=== PATIENT | female | born 1990 | race Caucasian/White ===

== ENCOUNTER 2022-01-03 15:49 | Emergency (ER) | payer MEDICAID ==
[~2022-01-03] VITALS: Ht 170.2 cm; Wt 71.8 kg
[2022-01-03 16:20] VITALS: BP 126/69
[2022-01-03] MEDS ORDERED: IBUPROFEN 800 MG TAB PO ONE (16:45)
[2022-01-03] MEDS ORDERED: IBUPROFEN 800 MG TAB ONE (16:47)
[2022-01-03] MEDS ORDERED: IBUP-2213 PO (18:04)
[2022-01-03 18:17] VITALS: BP 126/69
[2022-01-04] MEDS ORDERED: CEPH-588 PO (13:44)
[2022-01-04] MEDS ORDERED: ACET-10509 PO (13:45)
== END 2022-01-03 18:18 | disposition home or self-care (01) ==
LOC: MED 15:49
DX: S86.811A Strain of other muscle(s) and tendon(s) at lower leg level, right leg, initial encounter (principal); Z20.822 Contact with and (suspected) exposure to COVID-19; X58.XXXA Exposure to other specified factors, initial encounter; Y93.89 Activity, other specified; Y92.89 Other specified places as the place of occurrence of the external cause; Y99.8 Other external cause status
CPT/HCPCS: 29505; 73562; 99284

== ENCOUNTER 2022-01-04 11:43 | Emergency (ER) | payer MEDICAID ==
[~2022-01-04] VITALS: Ht 170.2 cm; Wt 71.7 kg
[~2022-01-04 11:43] MED LIST: IBUP-2213 PO
[2022-01-04 12:01] VITALS: BP 111/63
[2022-01-04] MEDS ORDERED: NACL 0.9% 1,000 ML IV SCH (13:10)
--- NOTE | 2022-01-04 13:24 | NUR ---
SIN AT BEDSIDE
--- NOTE | 2022-01-04 13:28 | NUR ---
XRAY AT BEDSIDE
[2022-01-04] MEDS ORDERED: KETOROLAC 30 MG/ML VIAL IVP ONE (13:30)
[2022-01-04] MEDS ORDERED: diphenhydrAMINE 50 MG/ML VIAL IVP ONE (13:30)
[2022-01-04 13:34] LABS: BASOPHILS % (AUTO) 0.2 % (0.0-2.0); EOSINOPHILS % (AUTO) 0.1 % (0.0-4.0); HEMATOCRIT 34.7 % (36-48); LYMPHOCYTES # (AUTO) 0.5 K/uL (2.5-16.5); LYMPHOCYTES % (AUTO) 5.4 % (20.5-51.1); MEAN CORPUSCULAR HEMOGLOBIN 32 pg (27-31); MEAN CORPUSCULAR HGB CONC 35 g/dL (33-37); MEAN CORPUSCULAR VOLUME 93.2 fL (80-94); MONOCYTES # (AUTO) 0.5 K/uL (0.8-1.0); MONOCYTES % (AUTO) 5.8 % (1.7-9.3); NEUTROPHILS # (AUTO) 7.4 K/uL (1.8-7.7); NEUTROPHILS % (AUTO) 88.5 % (42.2-75.2); PLATELET COUNT (AUTO) 130 K/uL (140-450); RED BLOOD CELL COUNT(AUTO) 3.73 MIL/uL (4.20-5.40); RED CELL DISTRIBUTION WIDTH 12.7 % (11.6-13.7); WHITE BLOOD COUNT (AUTO) 8.4 K/uL (4.8-10.8)
--- NOTE | 2022-01-04 13:35 | NUR ---
31YO FEMALE PT C/O SHARP 01/12 R INCREASED LEG PAIN XYDAY. PT WAS SEEN IN ER YESTERDAY FOR SIMILIAR SYMPTOMS AND D/C WITH PAIN RX AND LEG BRACE. STATES INITIAL PAIN STARTED AFTER "BENDING FORWARD". PT CAME BACK DUE TO INCREASED PAIN AND NEW ONSET OF 101 FEVER , CHILLS , NAUSEA AND COLD SWEATS XLAST NIGHT . BACK OF R LEG PRESENTS WITH REDDENED RASH, TENDER TO TOUCH. MILD RELIEF AFTER TAKING IBUPROFEN. PT STATES INCREASE IN SIZE SINCE FIRST NOTED - ON FRIDAY. DENIES V/D, CHEST PAIN OR SOB.PT AAOX4, AMBULATORY USING CRUTCHES. NO VIISIBLE DISTRESS, RESPIRATIONS EVEN AND UNLABORED. 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 HX: CHILDHOOD ASTHMA ALLERGIES: SULFA, METRONIDAZOLE
[2022-01-04] MEDS ORDERED: ONDANSETRON 4 MG/2 ML VIAL IVP ONE (13:40)
[2022-01-04] MEDS ORDERED: CEPH-588 PO (13:44)
[2022-01-04] MEDS ORDERED: ACET-10509 PO (13:45)
--- NOTE | 2022-01-04 13:50 | NUR ---
US AT BEDSIDE
[2022-01-04] MEDS ORDERED: cefTRIAXone 1,000 MG VIAL ONE (13:59)
[2022-01-04 14:00] LABS: PROTHROMBIN TIME 12.2 secs (10.8-13.4)
--- NOTE | 2022-01-04 14:09 | NUR ---
PT AMBULATORY USING CRUTCHES TO RESTROOM
[2022-01-04 14:13] LABS: ALBUMIN 3.2 g/dL (3.4-5.0); ANION GAP 12.3 (8-16); CARBON DIOXIDE 25.3 mmol/L (21-32); CREATININE 0.8 mg/dL (0.6-1.3); POTASSIUM 3.6 mmol/L (3.5-5.1); TOTAL BILIRUBIN 0.8 mg/dL (0.0-1.0)
--- NOTE | 2022-01-04 14:15 | NUR ---
pt swabbed for covid([place]) and flu . handed to quality assurance/r&d lab technician
--- NOTE | 2022-01-04 14:15 | NUR ---
PT AMBULATORY USING CRUTCHES BACK TO ROOM
[2022-01-04 14:45] LABS: APPEARANCE,URINE CLEAR (CLEAR); BILIRUBIN,URINE NEGATIVE (NEGATIVE); BLOOD, URINE 1+ (NEGATIVE); COLOR,URINE YELLOW (YELLOW); LEUKOCYTE ESTERASE ,URINE NEGATIVE (NEGATIVE); NITRITE, URINE NEGATIVE (NEGATIVE); UGLUCOSE NEGATIVE (NEGATIVE)
[2022-01-04 15:14] LABS: RBC,URINE 0-5 /HPF (0-5); WBC,URINE 0-5 /HPF (0-5)
[2022-01-04 15:45] VITALS: BP 111/63
--- NOTE | 2022-01-04 15:45 | NUR ---
Patient discharged with v/s stable. Written and verbal after care instructions FOR CELLULITIS given and explained. Patient alert, oriented and verbalized understanding of instructions. Wheel Chair Assisted with to car. All questions addressed prior to discharge. ID band removed. Patient advised to follow up with PMD. Rx of TYLENOL XTRA STRENGTH AND KEFLEX given. Opportunity to ask questions provided and answered.
--- NOTE | 2022-01-04 16:05 | NUR ---
Note lanone in EDM - 01/04/22 at 1615 by PHSEP Patient discharged with v/s stable. Written and verbal after care instructions FOR CELLULITIS given and explained. Patient alert, oriented and verbalized understanding of instructions. Wheel Chair Assisted with to car. All questions addressed prior to discharge. ID band removed. Patient advised to follow up with PMD. Rx of TYLENOL XTRA STRENGTH AND KEFLEX given. Opportunity to ask questions provided and answered.
--- NOTE | 2022-01-04 16:06 | NUR ---
Chart checked and completed. The patient's care was reviewed and supervised by Rosibel Lugo RN.
== END 2022-01-04 15:45 | disposition home or self-care (01) ==
LOC: MED 11:43
DX: L03.115 Cellulitis of right lower limb (principal); Z20.822 Contact with and (suspected) exposure to COVID-19; J45.909 Unspecified asthma, uncomplicated; Z79.899 Other long term (current) drug therapy; Z88.8 Allergy status to other drugs, medicaments and biological substances
CPT/HCPCS: 36415; 71045; 80053; 81001; 81025; 82550; 83605; 85025; 85610; 85730; 87040; 87086; 87426; 87804; 93971; 96361; 96365; 96375; 99285; J0696; J1200; J1885; J2405; J7030; Q0092

== ENCOUNTER 2022-07-04 18:10 | Inpatient (IN) | payer MEDICAID ==
[~2022-07-04] VITALS: Ht 170.2 cm; Wt 74.0 kg
[~2022-07-04 18:10] MED LIST changes: +ACET-10509 PO; +CEPH-588 PO
[2022-07-04 18:49] VITALS: BP 108/69
[2022-07-04 20:07] LABS: APPEARANCE,URINE CLEAR (CLEAR); BILIRUBIN,URINE NEGATIVE (NEGATIVE); BLOOD, URINE 1+ (NEGATIVE); COLOR,URINE YELLOW (YELLOW); LEUKOCYTE ESTERASE ,URINE NEGATIVE (NEGATIVE); NITRITE, URINE NEGATIVE (NEGATIVE); PH,URINE 5.5 (5.0-9.0); UGLUCOSE NEGATIVE (NEGATIVE)
--- NOTE | 2022-07-04 20:09 | NUR ---
Blood for labwork drawn by review scheduling coordinator Patient tolerated well.
--- NOTE | 2022-07-04 20:30 | NUR ---
32 Y/O F PRESENTS WITH SHARP THROBBING 10/10 PELVIC PAIN XYESTERDAY. PT STATED SHE HAS CYST PREVIOUSLY X1YR BUT UNTREATED AND COUGH/SNEEZING INTENSES HER PAIN. PT STATED SHE HAS HAD SOME AUSEA BUT REFUSES VD. SKIN INTACT, A&OX4. PT STATED SHE HAD 2BM XTODAY. PMH-ASTHMA ALLERGIES-SULFAS, METRONIDAZOLE
--- NOTE | 2022-07-04 20:39 | NUR ---
Dr. Gipson examining patient.
[2022-07-04] MEDS ORDERED: ONDANSETRON 4 MG ODT PO ONE (20:40)
[2022-07-04] MEDS ORDERED: ACETAMINOPHEN 325 MG TAB PO ONE (20:40)
[2022-07-04] MEDS ORDERED: KETOROLAC 15 MG/ML VIAL IM ONE (20:40)
--- NOTE | 2022-07-04 20:41 | NUR ---
Patient taken to bed 07.
[2022-07-04 20:43] LABS: RBC,URINE 0-5 /HPF (0-5); WBC,URINE NONE SEEN /HPF (0-5)
[2022-07-04 20:47] LABS: BASOPHILS % (AUTO) 0.8 % (0.0-2.0); EOSINOPHILS # (AUTO) 0.1 K/uL (0-0.4); EOSINOPHILS % (AUTO) 3.1 % (0.0-4.0); HEMATOCRIT 37.3 % (36-48); HEMOGLOBIN 12.8 g/dL (12.0-16.0); LYMPHOCYTES # (AUTO) 1.4 K/uL (2.5-16.5); LYMPHOCYTES % (AUTO) 32.3 % (20.5-51.1); MEAN CORPUSCULAR HEMOGLOBIN 31 pg (27-31); MEAN CORPUSCULAR HGB CONC 34 g/dL (33-37); MEAN CORPUSCULAR VOLUME 91.1 fL (80-94); MONOCYTES # (AUTO) 0.2 K/uL (0.8-1.0); NEUTROPHILS # (AUTO) 2.6 K/uL (1.8-7.7); NEUTROPHILS % (AUTO) 58.8 % (42.2-75.2); PLATELET COUNT (AUTO) 180 K/uL (140-450); RED CELL DISTRIBUTION WIDTH 12.2 % (11.6-13.7); WHITE BLOOD COUNT (AUTO) 4.4 K/uL (4.8-10.8)
--- NOTE | 2022-07-04 21:12 | NUR ---
ULTRASOUND AT BEDSIDE
[2022-07-04 21:32] LABS: ALBUMIN 4.7 g/dL (3.4-5.0); ANION GAP 10.6 (8-16); CARBON DIOXIDE 30.3 mmol/L (21-32); CREATININE 0.7 mg/dL (0.6-1.3); POTASSIUM 3.9 mmol/L (3.5-5.1); TOTAL BILIRUBIN 0.4 mg/dL (0.0-1.0)
--- NOTE | 2022-07-04 21:45 | NUR ---
PT REFUSING IV AND MEDICATION MORPHINE. PT STATED "I DO NOT NEED AN IV AT THE MOMENT AND I DO NOT WANT MOREPHINE RIGHT NOW."
[2022-07-04] MEDS ORDERED: NACL 0.9% 1,000 ML IV ONE (22:20)
[2022-07-04] MEDS ORDERED: MORPHINE SULFATE 4 MG/ML SYR IVP ONE (22:20)
--- NOTE | 2022-07-04 22:30 | NUR ---
PT CONTINUING TO DENY IV AT THE MOMENT
--- NOTE | 2022-07-04 23:45 | NUR ---
PT CHANGED MIND ABOUT IV AND ASKED IF SHE CAN STILL HAVE THE IV. IV WAS SUCCESSFULLY PLACED.
--- NOTE | 2022-07-05 01:30 | NUR ---
PT RESTING IN ROOM ON WAREHOUSE HAND
[2022-07-05] MEDS ORDERED: LORazepam 2 MG/ML VIAL IVP PRN (02:55)
[2022-07-05] MEDS ORDERED: ONDANSETRON 4 MG/2 ML VIAL IVP PRN (02:55)
[2022-07-05] MEDS ORDERED: MORPHINE SULFATE 2 MG/ML SYR IVP PRN (02:55)
[2022-07-05] MEDS: NACL 0.9% 1,000 ML IV SCH ×2 (03:42→10:55)
--- NOTE | 2022-07-05 04:00 | NUR ---
Patient will be admitted to care of DR. YOUSSEF. Admited to MED SURG. Will go to [id number]. Belongings list completed. Report to NICK STEEL.
--- NOTE | 2022-07-05 04:10 | NUR ---
RECEIVED REPORT FROM ER NURSE FOR CONTINUITY OF CARE. PT IS STABLE AT THIS TIME, NO PAIN NOTED. ON ROOM AIR WITH NO SIGNS OF ACUTE DISTRESS NOTED. IV SITE AT LEFT HAND 22 GAUGE RUNNING NS AT 50ML/HR, INTACT AND PATENT. PT IS A&O X4 AND AMBULATORY. ORIENTED PT TO ROOM, BED MECHANICS AND CALL LIGHT. BED LOWERED TO LOWEST POINT, CALL LIGHT WITHIN REACH. WILL CONTINUE FREQUENT ROUNDS.
--- NOTE | 2022-07-05 04:25 | NUR ---
PATIENT PLAN OF CARE DISCUSSED AND REVIEWED WITH MILVIA GOMEZ.
[2022-07-05 05:31] VITALS: BP 106/57
[2022-07-05] MEDS: ACETAMINOPHEN 325 MG TAB PO PRN ×2 (05:42→13:24)
--- NOTE | 2022-07-05 07:25 | NUR ---
RECEIVED REPORT FROM NIGHT NURSE NICK FOR CONTINUITY OF CARE. INITIAL ASSESSMENT DONE. IVF INFUSING WELL. PT ON NPO. NOT IN ANY DISTRESS OR DISCOMFORT. CALL LIGHT KEPT WITHIN REACH. WILL CONTINUE TO MONITOR.
--- NOTE | 2022-07-05 07:51 | NUR ---
PT RECEIVED TYLENOL 650 MG FOR A PAIN LEVEL OF 4/10. NO OTHER SIGNS OF DISTRESS NOTED. ENDORSED TO DAY SHIFT NURSE FOR CONTINUITY OF CARE.
[2022-07-05 08:00] VITALS: BP 113/63
--- NOTE | 2022-07-05 09:26 | NUR ---
RECEIVED CALLED FROM PT ASKING FOR PLAN OF CARE. DR. MAY NOTIFIED AND STATED HE WILL COME AROUND 1430. PT MADE AWARE.
--- NOTE | 2022-07-05 10:43 | NUR ---
PATIENT HAS BEEN SCREENED AND CATEGORIZED LOW NUTRITION RISK. PATIENT WILL BE SEEN WITHIN 7 DAYS OF ADMISSION. 07/12/[address]
--- NOTE | 2022-07-05 13:24 | NUR ---
PRN TYLENOL WAS GIVEN FOR PAIN MANAGEMENT. TOLERATING WELL.
[2022-07-05 16:00] VITALS: BP 107/60
--- NOTE | 2022-07-05 16:41 | NUR ---
SEEN BY DR. MAY. PER OB/GYNE CONSULT WITH DR. HERNANDEZ. PT MADE AWARE.
--- NOTE | 2022-07-05 18:39 | NUR ---
SEEN BY DR. HERNANDEZ. PT CLEARED FOR DISCHARGE. DR. MAY NOTIFIED AND AGREED. WITH DISCHARGE ORDER.
--- NOTE | 2022-07-05 19:05 | NUR ---
DISCHARGE PAPERWORK SIGN AND DISCUSS TO PT. IV AND ID REMOVED. REPORT GIVEN TO NIGHT NURSE NICK.
== END 2022-07-05 19:16 | disposition home or self-care (01) | DRG 532 ==
LOC: MED 18:10 → MMU 07-05 02:56 → MTU 07-05 03:57
PROVIDERS: ADMIT Hospitalist; ATTEND Hospitalist
DX: D27.1 Benign neoplasm of left ovary (principal); Z20.822 Contact with and (suspected) exposure to COVID-19; Z79.1 Long term (current) use of non-steroidal anti-inflammatories (NSAID); Z88.2 Allergy status to sulfonamides; Z88.8 Allergy status to other drugs, medicaments and biological substances; Z79.899 Other long term (current) drug therapy
CPT/HCPCS: 36415; 76830; 80053; 81001; 83690; 85025; 87081; 96360; 96372; 99285; J1885; J7030; Q0092; Q0162

== ENCOUNTER 2023-01-22 06:45 | Emergency (ER) | payer MEDICAID ==
[~2023-01-22] VITALS: Ht 170.2 cm; Wt 72.6 kg
[2023-01-22 06:52] VITALS: BP 130/80; PULSE 80; RESP 18; TEMP 97.8; O2SAT 99
[2023-01-22] MEDS ORDERED: KETOROLAC 60 MG/2 ML VIAL IM ONE (07:25)
[2023-01-22] MEDS ORDERED: ACET-8905 PO ×3 (07:43→09:20)
[2023-01-22] MEDS ORDERED: IBUP-2213 PO ×3 (07:43→09:20)
[2023-01-22 08:37] VITALS: BP 130/80; PULSE 80; RESP 18; TEMP 97.8; O2SAT 99
== END 2023-01-22 08:37 | disposition home or self-care (01) ==
LOC: MED 06:45
DX: M54.50 Low back pain, unspecified (principal); R10.30 Lower abdominal pain, unspecified; J45.909 Unspecified asthma, uncomplicated; F17.200 Nicotine dependence, unspecified, uncomplicated; Z72.89 Other problems related to lifestyle; Z88.8 Allergy status to other drugs, medicaments and biological substances; Z79.899 Other long term (current) drug therapy
CPT/HCPCS: 81002; 81025; 96372; 99283; J1885

== ENCOUNTER 2023-05-09 19:03 | Emergency (ER) | payer MEDICAID ==
[~2023-05-09 19:03] MED LIST changes: -ACET-10509 PO; +ACET-8905 PO; -CEPH-588 PO
== END 2023-05-09 20:18 | disposition left against medical advice (07) ==
LOC: MED 19:03
DX: T14.8XXA Other injury of unspecified body region, initial encounter (principal); Z53.21 Procedure and treatment not carried out due to patient leaving prior to being seen by health care provider; X58.XXXA Exposure to other specified factors, initial encounter; Y93.89 Activity, other specified; Y92.89 Other specified places as the place of occurrence of the external cause; Y99.8 Other external cause status